=== PATIENT | male | born 2000 | race Hispanic/Latino ===

== ENCOUNTER 2023-12-13 07:24 | Inpatient (IN) | payer OTHER ==
[2023-12-13 07:57] VITALS: BMI 27.1
[2023-12-13] MEDS ORDERED: Ondansetron ODT 4 MG TAB PO PRN (08:24)
[2023-12-13 08:55] LABS: #Basophils 0.04 10x3/uL (0.0-0.2); #Eosinphils 0.02 10x3/uL (0.0-0.5); #Monocytes 0.64 10x3/uL (0.0-1.1); #Neutrophils 5.52 10x3/uL (1.5-8.4); %Basophils 0.5 % (0.0-2.0); %Eosinophils 0.2 % (0.0-6.0); %Lymphocytes 25.4 % (18.0-47.0); %Monocytes 7.6 % (0.0-10.0); %Neutrophils 66.1 % (40.0-75.0); Hematocrit 39.8 % (38.8-50.0); Hemoglobin 14.4 g/dL (13.5-17.5); Mean Corpuscular HGB CONC 36.2 g/dL (32.0-36.0); Mean Corpuscular Hemoglobin 33.6 pg (27.0-33.0); Mean Platelet Volume 10.4 fL (7.4-10.4); Platelet Count 239 10x3/uL (150-450); RBC Distribution Width 12.9 % (11.5-14.5); Red Blood Cell (RBC) Count 4.28 10x6/uL (4.32-5.72); White Blood Cell (WBC) Count 8.4 10x3/uL (3.5-10.5)
[2023-12-13] MEDS: Famotidine 20 MG TAB PO SCH (09:20)
[2023-12-13 09:37] LABS: ALT (SGPT) 13 U/L (8-55); AST (SGOT) 22 U/L (5-34); Acetaminophen 15 mcg/mL (10.0-30.0); Albumin 4.1 g/dL (3.5-5.0); Alkaline Phosphatase 50 U/L (40-110); Anion Gap 10 mmol/L (10-20); BUN (Urea Nitrogen) 12 mg/dL (8.9-20.6); Bilirubin, Total 1.8 mg/dL (0.2-1.2); CK (CPK) 1076 U/L (30-200); Calc. Creatinine Clearance 181 mL/min (70-130); Calcium 8.9 mg/dL (7.8-10.44); Carbon Dioxide 26 mmol/L (22-29); Chloride 107 mmol/L (98-107); Estimated GFR 122; Globulin 2.6 g/dL (2.4-3.5); Glucose 90 mg/dL (70-105); Potassium 3.5 mmol/L (3.5-5.1); Protein, Total 6.7 g/dL (6.0-8.3); Sodium 139 mmol/L (136-145)
[2023-12-13] MEDS ORDERED: Lorazepam 2 MG/ML VIAL SLOW IVP PRN (10:33)
[2023-12-13] MEDS: Lactated Ringer's 1,000 ML IV SCH (10:53)
[2023-12-13] MEDS: Potassium Chloride 20 MEQ TAB PO SCH (12:19)
[2023-12-13] MEDS: levETIRAcetam 500 MG TAB PO SCH (21:20)
[2023-12-14 03:54] LABS: Anion Gap 8 mmol/L (10-20); BUN (Urea Nitrogen) 11 mg/dL (8.9-20.6); CK (CPK) 870 U/L (30-200); Calc. Creatinine Clearance 189 mL/min (70-130); Calcium 8.6 mg/dL (7.8-10.44); Carbon Dioxide 27 mmol/L (22-29); Chloride 109 mmol/L (98-107); Estimated GFR 124; Glucose 79 mg/dL (70-105); Potassium 4.3 mmol/L (3.5-5.1); Sodium 140 mmol/L (136-145)
[2023-12-14] MEDS: OLANZapine 5 MG TAB PO SCH (09:01)
[2023-12-14 16:45] VITALS: BP 100/61; TEMP 97.9
== END 2023-12-14 20:15 | disposition home or self-care (01) | DRG 918 ==
LOC: INTOOBSV 07:24 → CSHTELE 07:24 → EEVIPCON 07:24 → OBSVTOIN 12-14 09:40
PROVIDERS: ADMIT Family Medicine; ATTEND Family Medicine
DX: T39.1X2A Poisoning by 4-Aminophenol derivatives, intentional self-harm, initial encounter (principal); F31.9 Bipolar disorder, unspecified; F20.9 Schizophrenia, unspecified; G40.909 Epilepsy, unspecified, not intractable, without status epilepticus; D50.9 Iron deficiency anemia, unspecified; R09.02 Hypoxemia; X83.8XXA Intentional self-harm by other specified means, initial encounter; Z98.890 Other specified postprocedural states
CPT/HCPCS: 36415; 80048; 80143; 82550; 83735; 93005; 93010; 93306; 80307; G0378; J7120